=== PATIENT | female | born 1965 | race Caucasian/White ===

== ENCOUNTER 2017-10-27 09:22 | Day surgery (SDC) | payer OTHER ==
[~2017-10-27] VITALS: Ht 170.2 cm; Wt 73.9 kg
[~2017-10-27 09:22] MED LIST: AMBIEN CR12.5 MG PO; CYMBALTA30 MG PO; CYMBALTA60 MG PO; DOLOPHINE HCL5 MG PO; DURAGESIC75 MCG TD; ELAVIL150 MG PO; ELAVIL75 MG PO; ENDOCET 10-3251 EACH PO; FLEXERIL10 MG PO; LORCET 5-325 M1 EACH PO; LYRICA50 MG PO; LYRICA75 MG PO; MOBIC7.5 MG PO; MS CONTIN,ORAMO15 M1 PO; NEXIUM40 MG PO; OXYCONTIN10 MG PO; PERCOCET 10/1 TABLET PO; PERCOCET 5/31 TABLET PO; PERCOCET 7.51 TABLET PO; PROMETHAZINE HC25 M1 PO; REMERON45 MG PO; SOMA250 MG PO; SOMA350 MG PO; TIZANIDINE HCL4 M1 PO; XANAX1 MG PO; ZANAFLEX4 M1 PO; ZOFRAN4 MG PO
== END 2017-10-27 10:45 | disposition home or self-care (01) ==
LOC: PAIN 09:22 → SDC 10:00 → PAIN 10:00
PROC: 3E0R3BZ Introduction of Anesthetic Agent into Spinal Canal, Percutaneous Approach (ICD-10-PCS; principal; 2017-10-27)
PROC: 3E0R33Z Introduction of Anti-inflammatory into Spinal Canal, Percutaneous Approach (ICD-10-PCS; principal; 2017-10-27)
PROC: B01B1ZZ Fluoroscopy of Spinal Cord using Low Osmolar Contrast (ICD-10-PCS; principal; 2017-10-27)
DX: M50.13 Cervical disc disorder with radiculopathy, cervicothoracic region (principal); K21.9 Gastro-esophageal reflux disease without esophagitis; E03.9 Hypothyroidism, unspecified; F17.200 Nicotine dependence, unspecified, uncomplicated
CPT/HCPCS: J1030; J1100; J2250; J3010; S0020

== ENCOUNTER → 2017-12-17 | Outpatient (CLI) | payer OTHER | END | disposition home or self-care (01) | LOC: RAD 13:56 | PROC: 3E0R3KZ Introduction of Other Diagnostic Substance into Spinal Canal, Percutaneous Approach (ICD-10-PCS; principal; 2017-12-17) | DX: M51.34 Other intervertebral disc degeneration, thoracic region (principal); M51.24 Other intervertebral disc displacement, thoracic region; M50.21 Other cervical disc displacement, high cervical region; M25.78 Osteophyte, vertebrae; Z98.890 Other specified postprocedural states; Z96.89 Presence of other specified functional implants; T85.192A Other mechanical complication of implanted electronic neurostimulator of spinal cord electrode (lead), initial encounter; M47.814 Spondylosis without myelopathy or radiculopathy, thoracic region; Z98.1 Arthrodesis status | CPT/HCPCS: 62305; 72126; 72129; 72132 ==

== ENCOUNTER 2018-02-01 12:13 | Day surgery (SDC) | payer OTHER ==
[~2018-02-01] VITALS: Ht 170.2 cm; Wt 73.9 kg
== END 2018-02-01 13:45 | disposition home or self-care (01) ==
LOC: PAIN 12:13 → SDC 12:45 → PAIN 12:45
DX: M53.3 Sacrococcygeal disorders, not elsewhere classified (principal); M46.1 Sacroiliitis, not elsewhere classified; M54.16 Radiculopathy, lumbar region; K21.9 Gastro-esophageal reflux disease without esophagitis; F41.1 Generalized anxiety disorder; D03.9 Melanoma in situ, unspecified; F17.200 Nicotine dependence, unspecified, uncomplicated; Z79.891 Long term (current) use of opiate analgesic
CPT/HCPCS: J1030; J2250; S0020